=== PATIENT | male | born 1985 | race Caucasian/White ===

== ENCOUNTER 2022-12-06 15:28 | Inpatient (IN) ==
[2022-12-06 16:51] LABS: POC Calcium, Ionized 1.15 (1.16-1.32); POC Creatinine 0.9 (0.6-1.2); POC Potassium 3.7 (3.3-5.1)
--- NOTE | 2022-12-06 17:00 | Emergency Department Note ---
HPI General Chief complaint: Extremity Problem,Nontraumatic Stated complaint: leg infection Time Seen by Provider: 12/06/22 16:56 Source: patient Mode of arrival: ambulatory History of Present Illness HPI Narrative: Narrative: Patient is a 37-year-old male with no significant past medical history who presents to the emergency department due to worsening infection of the left groin and lower extremity. He states that he was seen on Tuesday at that time was diagnosed with epididymitis. He states that he received 1 dose of IV antibiotics in the emergency department and then has had 2 doses of Levaquin since then. He states that since then he has had spread of the redness down his leg, significant burning pain of this area, and has had chills. He states that he has felt unwell in general, but denies any other symptoms at this time. Related Data Previous Rx's Medication Instructions Recorded levofloxacin 750 mg tablet 750 mg PO Q24H Epididymitis 14 12/04/22 days #14 tabs Allergies Allergy/AdvReac Type Severity Reaction Status Date / Time Seasonal allergies Allergy Unknown Congestion Uncoded 10/19/22 09:43 Review of Systems ROS ROS Narrative: Narrative: Constitutional: Reports chills; Denies fever or weakness Eyes: Denies eye pain or vision change ENT ED: Denies throat pain or rhinorrhea Cardiovascular: Denies chest pain, dyspnea on exertion, orthopnea or edema Respiratory: Denies shortness of breath or cough Gastrointestinal: Reports nausea; Denies abdominal pain, vomiting, diarrhea, constipation, hematochezia or melena Genitourinary: Denies dysuria, frequency or hematuria Musculoskeletal: Denies back pain or myalgia Integumentary: Reports change in color (L thigh); Denies rash or lesions Neurological: Reports headache; Denies weakness, numbness, confusion, abnormal gait or dizziness [facility] Narrative Patient History Narrative: Narrative: Medical/Surgical/Family History All Active Problems (Updated 12/06/22 @ 18:56 by Martin Pathak MD) Left inguinal pain (Acute) Epididymitis (Acute) Sepsis (Acute) Cellulitis (Acute) Sleep pattern disturbance (Acute) Influenza vaccination declined (Acute) No pertinent past medical history (Chronic) Medical History No pertinent past medical history Surgical History History of surgery Tibia michel History of surgery PCL reconstruction Family History Grandfather Myocardial infarction, Onset Age: 45 Other No pertinent family history Social History Smoking Status: Never smoker Alcohol Intake Frequency: holiday/special occasion only Substance Use: does not use Exam Narrative Narrative: Narrative: General General appearance: Present alert and in no apparent distress; Absent anxious, appears intoxicated or sleepy Head Head: Present atraumatic and normocephalic Eye Eye: Present EOMI; Absent scleral icterus or nystagmus ENT ENT: Present mucous membranes moist; Absent nasal congestion Neck Neck: Present full ROM and trachea midline Chest Chest: Present normal inspection and symmetric chest wall rise Respiratory Respiratory: Present normal lung sounds bilaterally; Absent respiratory distress, rales/crackles, wheezes, stridor or accessory muscle use Cardiovascular Cardiovascular: Present regular rate, normal rhythm, tachycardia and normal hear t sounds Adbominal Abdominal: Present soft and normal bowel sounds; Absent distention or tenderness Extremities Extremities: Present normal inspection, full ROM and tenderness (Left thigh over erythema); Absent pedal edema or pretibial edema Back Back: Present normal inspection and full ROM Neurological Neurological: Present alert and oriented X3 Psychiatric Psychiatric: Present normal affect and normal mood Skin Skin: Present warm (WNL), dry and normal color Course Vital Signs Vital signs: Vital Signs Temperature 98.6 F 12/06/22 15:32 Pulse Rate 106 H 12/06/22 15:32 Respiratory Rate 18 12/06/22 15:32 Blood Pressure 147/82 12/06/22 15:32 Pulse Oximetry (%) 97 12/06/22 15:32 Oxygen Delivery Method Room Air 12/06/22 15:32 Temperature 100.8 F H 12/06/22 17:23 Pulse Rate 115 H 12/06/22 18:27 Respiratory Rate 18 12/06/22 15:32 Blood Pressure 145/82 12/06/22 18:27 Pulse Oximetry (%) 100 12/06/22 18:27 Oxygen Delivery Method Room Air 12/06/22 15:32 MDM MDM Narrative Medical decision making narrative: Narrative: Patient is a 37-year-old male who presents to the emergency department due to concern for worsening infection on his left thigh. Patient does have findings consistent with cellulitis and this has spread. Patient has been on Levaquin due to concern that his symptoms were due to epididymitis. I am not concerned for epididymitis at this point, but more concern for cellulitis. Patient does meet sepsis criteria after second measurement of temperature with a temperature of 100.8 F. At that time blood cultures were drawn, CG 4 was drawn, and fluids were started. Soon after that vancomycin and ceftriaxone were ordered. Patient's labs do demonstrate a leukocytosis of 24. Patient's lactate is 1.0. Procalcitonin is 0.96. I have spoken to Dr. Lopez who has agreed to see and evaluate patient for admission. Lab Data 12/06/22 17:00 Labs: Lab Results 12/06/22 12/06/22 12/06/22 Range/Units 16:40 16:41 17:00 WBC 24.0 H (4.5-11.0) K/mcL RBC 4.43 L (4.63-6.08) M/mcL Hgb 13.4 L (13.7-17.5) g/dL Hct 38.6 L (40.1-51.0) % POC Hct 42.0 (41-55) MCV 87.1 (80.0-100.0) fL MCH 30.2 (26.0-34.0) pg MCHC 34.7 (31.0-36.0) g/dL RDW 12.3 (11.5-14.5) % Plt Count 230 (140-440) K/mcL MPV 11.1 (8.8-12.5) fL Immature Gran % (Auto) 0.8 H (0.0-0.5) % Neut % (Auto) 91.4 H (38.0-78.0) % Lymph % (Auto) 4.5 L (15.5-49.0) % Esmeralda % (Auto) 2.0 (1.0-12.0) % Eos % (Auto) 1.1 (0.0-7.0) % Baso % (Auto) 0.2 (0.0-2.0) % Lymph # (Auto) 1.08 L (1.50-4.80) K/mcL [place]mer[place]da # (Auto) 0.49 (0.10-0.90) K/mcL Eos # (Auto) 0.26 (0.00-0.70) K/mcL Baso # (Auto) 0.05 (0.00-0.30) K/mcL Immature Gran # 0.18 H (0.00-0.05) K/mcl Absolute Neutrophils 21.93 H (1.80-8.00) K/mcL POC VBG pH 7.41 (7.32-7.42) POC VBG pCO2 at Temp 38.2 L (41-51) POC VBG pO2 19 L (25-40) POC VBG HCO3 24.2 (24-28) POC VBG Total CO2 25.0 (25-29) POC Venous O2 Sat 31.0 L (40-70) POC VBG Base Excess 0 (-2-2) VBG Lactic Acid 1.0 (0.5-2) POC Sodium 136 (133-145) POC Potassium 3.7 (3.3-5.1) POC Chloride 101 (96-108) POC Total CO2 25.0 (22-30) POC BUN 12 (6-20) POC Creatinine 0.9 (0.6-1.2) POC Glucose 108 H (70-105) POC WB Ioniz Calcium 1.15 L (1.16-1.32) Procalcitonin (<0.10) ng/mL 12/06/22 Range/Units 17:00 WBC (4.5-11.0) K/mcL RBC (4.63-6.08) M/mcL Hgb (13.7-17.5) g/dL Hct (40.1-51.0) % POC Hct (41-55) MCV (80.0-100.0) fL MCH (26.0-34.0) pg MCHC (31.0-36.0) g/dL RDW (11.5-14.5) % Plt Count (140-440) K/mcL MPV (8.8-12.5) fL Immature Gran % (Auto) (0.0-0.5) % Neut % (Auto) (38.0-78.0) % Lymph % (Auto) (15.5-49.0) % [place]mer[place]da % (Auto) (1.0-12.0) % Eos % (Auto) (0.0-7.0) % Baso % (Auto) (0.0-2.0) % Lymph # (Auto) (1.50-4.80) K/mcL [place]mer[place]da # (Auto) (0.10-0.90) K/mcL Eos # (Auto) (0.00-0.70) K/mcL Baso # (Auto) (0.00-0.30) K/mcL Immature Gran # (0.00-0.05) K/mcl Absolute Neutrophils (1.80-8.00) K/mcL POC VBG pH (7.32-7.42) POC VBG pCO2 at Temp (41-51) POC VBG pO2 (25-40) POC VBG HCO3 (24-28) POC VBG Total CO2 (25-29) POC Venous O2 Sat (40-70) POC VBG Base Excess (-2-2) VBG Lactic Acid (0.5-2) POC Sodium (133-145) POC Potassium (3.3-5.1) POC Chloride (96-108) POC Total CO2 (22-30) POC BUN (6-20) POC Creatinine (0.6-1.2) POC Glucose (70-105) POC WB Ioniz Calcium (1.16-1.32) Procalcitonin 0.96 H (<0.10) ng/mL Discharge Plan Patient/Caregiver Discharge Instructions Pt seen by [facility]/PA only: No Clinical Impression: Sepsis, Cellulitis Patient Disposition: Xfer As Inpt ([facility]) Follow up with: Byron Crouch DO [Primary Care Provider] - Prescriptions: No Action levofloxacin 750 mg tablet 750 mg PO Q24H 14 Days Qty: 14 0RF Rx Instructions: Take until completely gone.
[2022-12-06] MEDS ORDERED: 0.9 % SODIUM CHLORIDE 1,000 ML IV ONE ×2 (17:23→18:49)
[2022-12-06] MEDS ORDERED: PIPERACILLIN SODIUM/TAZOBACTAM 3.375 GM in DEXTROSE 5% IN WATER 50 ML IV ONE (17:57)
[2022-12-06] MEDS ORDERED: VANCOMYCIN 2,000 MG in 0.9 % SODIUM CHLORIDE 500 ML IV ONE (17:57)
[2022-12-06] MEDS ORDERED: ACETAMINOPHEN 500 MG TABLET PO ONE (18:16)
[2022-12-06] MEDS ORDERED: ACETAMINOPHEN 325 MG TABLET PO ONE (18:20)
[2022-12-06 18:25] LABS: Basophils # (Auto) 0.05 K/mcL (0.00-0.30); Basophils % (Auto) 0.2 % (0.0-2.0); Eosinophils # (Auto) 0.26 K/mcL (0.00-0.70); Eosinophils % (Auto) 1.1 % (0.0-7.0); Hematocrit 38.6 % (40.1-51.0); Hemoglobin 13.4 g/dL (13.7-17.5); Lymphocytes # (Auto) 1.08 K/mcL (1.50-4.80); Lymphocytes % (Auto) 4.5 % (15.5-49.0); Mean Cell Volume 87.1 fL (80.0-100.0); Mean Corpuscular HGB Conc 34.7 g/dL (31.0-36.0); Mean Platelet Volume 11.1 fL (8.8-12.5); Monocytes # (Auto) 0.49 K/mcL (0.10-0.90); Neutrophils % (Auto) 91.4 % (38.0-78.0); Platelet Count 230 K/mcL (140-440); RBC 4.43 M/mcL (4.63-6.08); Red Cell Distribution Width 12.3 % (11.5-14.5)
[2022-12-06] MEDS ORDERED: ONDANSETRON 4 MG/2 ML VIAL IV PRN (19:40)
[2022-12-06] MEDS ORDERED: HYDROcodone/APAP 5/325MG TABLET PO PRN (19:40)
[2022-12-06] MEDS ORDERED: VANCOMYCIN PER PHARMACY IV ONE (19:45)
--- NOTE | 2022-12-06 19:59 | Internal Med History&Physical ---
HPI History of Present Illness Patient information: Note initiated : 12/06/22 at 7:48 pm Service Date, if different from initiated Date: [] Patient: Mainor Owens a 37 y/o M admitted on for leg infection. Chief Complaint: [] Chief complaint: cellulitis History of present illness: Mr. Owens is a 37 year old M with no significant PMH. He reports he was taking his snowmachine off his truck and felt pain in his groin and later that evening had N/V/D. He was seen in the ER, felt to have epidydimitis and given Rx for levofloxacin and discharged. He returns with worsening redness and swelling of the left thigh. In the ER, WBC is 24, CT A/P notes left pelvic inflammatory changes "extending from the anterior border of the psoas muscle throught the inguinal canal in to the groin." He was started on vancomycin and Zosyn and admission was requested. Constitutional Constitutional: Present as per HPI Cardiovascular Cardiovascular: Present as per HPI Respiratory Respiratory: Present as per HPI Gastrointestinal Gastrointestinal: Present diarrhea, nausea and vomiting Musculoskeletal Additional comments: left leg/thigh pain Neurological Neurological: Present as per HPI PFSH PFSH All Active Problems (Updated 12/06/22 @ 18:56 by Martin Pathak MD) Left inguinal pain (Acute) Epididymitis (Acute) Sepsis (Acute) Cellulitis (Acute) Sleep pattern disturbance (Acute) Influenza vaccination declined (Acute) No pertinent past medical history (Chronic) Medical History No pertinent past medical history Surgical History History of surgery Tibia michel History of surgery PCL reconstruction Family History Grandfather Myocardial infarction, Onset Age: 45 Other No pertinent family history Social History marital status: single occupational status: employed occupation: [employer] smoking status: Never smoker alcohol intake frequency: holiday/special occasion only substance use type: does not use MEDS/ALLERGIES Home Medications and Allergies Home Medications Medication Instructions Recorded Confirmed Type levofloxacin 750 mg tablet 750 mg PO Q24H Epididymitis 14 12/04/22 Rx days #14 tabs Allergies Allergy/AdvReac Type Severity Reaction Status Date / Time Seasonal allergies Allergy Unknown Congestion Uncoded 10/19/22 09:43 EXAM Constitutional Vitals: Temp Pulse Resp BP Pulse Ox O2 Del Method 100.8 F H 111 H 18 130/67 97 Room Air 12/06/22 17:23 12/06/22 19:21 12/06/22 15:32 12/06/22 19:21 12/06/22 19:21 12/06/22 15:32 Head Head exam: Present atraumatic, normal inspection and normocephalic ENT ENT exam: Present mucous membranes moist Cardiovascular Cardiovascular exam: Present normal rate and rhythm GI/Abdominal GI/Abdominal exam: Present normal bowel sounds and soft; Absent distended Neurological Exam Neurological exam: Present CN II-XII intact and oriented X3 Skin Additional comments: erythema left thigh DATA Data Completed and Pending Labs: Labs from last 24 hours 12/06/22 12/06/22 12/06/22 17:00 17:00 16:41 WBC 24.0 H RBC 4.43 L Hgb 13.4 L Hct 38.6 L POC Hct 42.0 MCV 87.1 MCH 30.2 MCHC 34.7 RDW 12.3 Plt Count 230 MPV 11.1 Immature Gran % (Auto) 0.8 H Neut % (Auto) 91.4 H Lymph % (Auto) 4.5 L [place] % (Auto) 2.0 Eos % (Auto) 1.1 Baso % (Auto) 0.2 Lymph # (Auto) 1.08 L [place] # (Auto) 0.49 Eos # (Auto) 0.26 Baso # (Auto) 0.05 Immature Gran # 0.18 H Absolute Neutrophils 21.93 H POC VBG pH POC VBG pCO2 at Temp POC VBG pO2 POC VBG HCO3 POC VBG Total CO2 POC Venous O2 Sat POC VBG Base Excess VBG Lactic Acid POC Sodium 136 POC Potassium 3.7 POC Chloride 101 POC Total CO2 25.0 POC BUN 12 POC Creatinine 0.9 POC Glucose 108 H POC WB Ioniz Calcium 1.15 L Procalcitonin 0.96 H 12/06/22 16:40 WBC RBC Hgb Hct POC Hct MCV MCH MCHC RDW Plt Count MPV Immature Gran % (Auto) Neut % (Auto) Lymph % (Auto) [place] % (Auto) Eos % (Auto) Baso % (Auto) Lymph # (Auto) [place] # (Auto) Eos # (Auto) Baso # (Auto) Immature Gran # Absolute Neutrophils POC VBG pH 7.41 POC VBG pCO2 at Temp 38.2 L POC VBG pO2 19 L POC VBG HCO3 24.2 POC VBG Total CO2 25.0 POC Venous O2 Sat 31.0 L POC VBG Base Excess 0 VBG Lactic Acid 1.0 POC Sodium POC Potassium POC Chloride POC Total CO2 POC BUN POC Creatinine POC Glucose POC WB Ioniz Calcium Procalcitonin A/P Assessment and plan (1) Cellulitis: Assessment and plan: - left inguinal and leg cellulitis - vancomycin and Zosyn - Blood culture pending Status: Acute Plan FEN - F: NS 100 ml/hr - E: replace as - N: regular DVT Prophylaxis - enoxaparin 40 mg subcutaneous daily Code Status - full code Discharge Disposition - anticipated he will discharge to home Time Spent With Patient Time: Total time spent is greater than 50% in coordination of care (as documented) at patient's floor/unit and/or counseling patient:
[2022-12-06] MEDS: 0.9 % SODIUM CHLORIDE 1,000 ML IV SCH (22:06)
[2022-12-06] MEDS: 0.9 % SODIUM CHLORIDE 10 ML SYRINGE IV SCH (22:06)
[2022-12-07] MEDS: ACETAMINOPHEN 325 MG TABLET PO PRN ×4 (00:49→20:38)
[2022-12-07] MEDS: PIPERACILLIN SODIUM/TAZOBACTAM 3.375 GM in DEXTROSE 5% IN WATER 50 ML IV SCH ×4 (00:52→17:47)
[2022-12-07] MEDS: 0.9 % SODIUM CHLORIDE 10 ML SYRINGE IV SCH ×4 (05:42→21:05)
[2022-12-07] MEDS ORDERED: VANCOMYCIN PER PHARMACY IV SCH (06:45)
[2022-12-07 07:15] LABS: Basophils # (Auto) 0.04 K/mcL (0.00-0.30); Basophils % (Auto) 0.2 % (0.0-2.0); Eosinophils # (Auto) 0.21 K/mcL (0.00-0.70); Eosinophils % (Auto) 1.1 % (0.0-7.0); Hematocrit 33.9 % (40.1-51.0); Hemoglobin 11.6 g/dL (13.7-17.5); Lymphocytes # (Auto) 1.49 K/mcL (1.50-4.80); Lymphocytes % (Auto) 7.9 % (15.5-49.0); Mean Cell Volume 87.1 fL (80.0-100.0); Mean Corpuscular HGB Conc 34.2 g/dL (31.0-36.0); Mean Platelet Volume 10.5 fL (8.8-12.5); Monocytes # (Auto) 0.79 K/mcL (0.10-0.90); Monocytes % (Auto) 4.2 % (1.0-12.0); Platelet Count 210 K/mcL (140-440); RBC 3.89 M/mcL (4.63-6.08); Red Cell Distribution Width 12.4 % (11.5-14.5); WBC 18.9 K/mcL (4.5-11.0)
[2022-12-07] MEDS: 0.9 % SODIUM CHLORIDE 1,000 ML IV SCH (08:55)
[2022-12-07] MEDS: ENOXAPARIN 40 MG/0.4 ML SYRINGE SQ SCH (08:55)
[2022-12-07] MEDS: VANCOMYCIN 1,500 MG in 0.9 % SODIUM CHLORIDE 500 ML IV SCH ×2 (08:55→20:39)
--- NOTE | 2022-12-07 10:55 | Internal Med Progress Note ---
SUBJECTIVE Subjective Patient information: Note initiated : 12/07/22 at 10:50 am Service Date, if different from initiated Date: [] Patient: Mainor Owens a 37 y/o M admitted on 12/06/22 for leg infection. Mr. Owens is a 37 year old M with no significant PMH. He reports he was taking his snowmachine off his truck and felt pain in his groin and later that evening had N/V/D. He was seen in the ER, felt to have epidydimitis and given Rx for levofloxacin and discharged. He returns with worsening redness and swelling of the left thigh. In the ER, WBC is 24, CT A/P notes left pelvic inflammatory changes "extending from the anterior border of the psoas muscle throught the inguinal canal in to the groin." He was started on vancomycin and Zosyn and admission was requested. Dec 07, WBC improved to 18 from 24. Blood cultures are NGTD. Will continue vancomycin and Zosy. Leg is less vibrantly red. Constitutional Vitals: Vital Signs Temp Pulse Resp BP Pulse Ox O2 Del Method 100.0 F H 101 H 18 129/89 96 Room Air 12/07/22 08:00 12/07/22 08:00 12/07/22 08:00 12/07/22 08:00 12/07/22 08:00 12/07/22 08:00 Period Temp Pulse Resp BP Sys/Sequeira Pulse Ox O2 Del Method O2 Flow Rate Last 24 Hr 98.4 F-100.8 F 89-122 16-18 120-147/63-93 96-100 Room Air-Room Air Intake and Output 12/06/22 12/07/22 12/07/22 19:59 03:59 11:59 Intake Total 1050 1550 1800 Output Total 1075 1200 Balance 1050 475 600 Weight 90.718 kg 102.257 kg Intake & Output: Intake & Output 12/06/22 12/07/22 12/07/22 19:59 03:59 11:59 Intake Total 1050 1550 1800 Output Total 1075 1200 Balance 1050 475 600 Weight 90.718 kg 102.257 kg Intake: IV 1050 1550 1050 Sodium Chloride 0.9% 1,000 ml @ 1000 1000 1000 100 mls/hr IV .Q10H [facility] Rx#: [id number] Zosyn 3.375 gm In Dextrose 5% 50 50 50 in Water 50 ml @ 100 mls/hr IV Q6H [facility] Rx#:[id number] Vancomycin 2,000 mg In Sodium 500 Chloride 0.9% 500 ml @ 250 mls/ hr IV ONCE ONE Rx#:[id number] GI Tube Flush 750 Output: Void Amount 1075 1200 Other: Meal Breakfast Percent of Meal Consumed 75% Feeding Ability Independent Urine Appearance Clear Clear Urine Color Yellow Yellow Urine Odor Normal Normal General appearance: no acute distress Head Head exam: Present atraumatic, normal inspection and normocephalic ENT ENT exam: Present mucous membranes moist Respiratory Respiratory exam: Present normal respiratory exam and CTAB Cardiovascular Cardiovascular exam: Present normal rate and rhythm GI/Abdominal GI/Abdominal exam: Present normal bowel sounds and soft; Absent distended Skin Additional comments: left thigh redness less intense and slightly smaller area. OBJ DATA Labs 12/07/22 05:21 Labs: Abnormal Lab Results 12/07/22 12/06/22 12/06/22 05:21 17:00 17:00 WBC 18.9 H 24.0 H RBC 3.89 L 4.43 L Hgb 11.6 L 13.4 L Hct 33.9 L 38.6 L Immature Gran % (Auto) 0.6 H 0.8 H Neut % (Auto) 86.0 H 91.4 H Lymph % (Auto) 7.9 L 4.5 L Lymph # (Auto) 1.49 L 1.08 L Immature Gran # 0.11 H 0.18 H Absolute Neutrophils 16.28 H 21.93 H POC VBG pCO2 at Temp POC VBG pO2 POC Venous O2 Sat POC Glucose POC WB Ioniz Calcium Procalcitonin 0.96 H 12/06/22 12/06/22 16:41 16:40 WBC RBC Hgb Hct Immature Gran % (Auto) Neut % (Auto) Lymph % (Auto) Lymph # (Auto) Immature Gran # Absolute Neutrophils POC VBG pCO2 at Temp 38.2 L POC VBG pO2 19 L POC Venous O2 Sat 31.0 L POC Glucose 108 H POC WB Ioniz Calcium 1.15 L Procalcitonin Meds: Medications Acetaminophen (Acetaminophen 325 Mg Tablet) 650 mg PO Q6HP PRN; Protocol PRN Reason: Per Pain Protocol/Fever > 101 Last Admin: 12/07/22 07:05 Dose: 650 mg Hydrocodone Bitart/Acetaminophen (Hydrocodone/Apap 5/325mg Tablet) 1 tab PO Q4HP PRN; Protocol PRN Reason: Per Pain Protocol Enoxaparin Sodium (Enoxaparin 40 Mg/0.4 Ml Syringe) 40 mg SQ DAILY [facility] Last Admin: 12/07/22 08:55 Dose: 40 mg Piperacillin Sod/Tazobactam (Sod 3.375 gm/ Dextrose) 50 mls @ 100 mls/hr IV Q6H [facility]; Protocol Last Infusion: 12/07/22 06:34 Dose: Infused Vancomycin HCl 1,500 mg/ (Sodium Chloride) 500 mls @ 333.3 mls/hr IV Q12H [facility] Last Admin: 12/07/22 08:55 Dose: 333.3 mls/hr Ondansetron HCl (Ondansetron 4 Mg/2 Ml Vial) 4 mg IV Q6HP PRN PRN Reason: Nausea And Vomiting Sodium Chloride (0.9 % Sodium Chloride 10 Ml Syringe) 10 ml IV Q8 [facility] Last Admin: 12/07/22 05:42 Dose: Not Given Vancomycin HCl (Vancomycin Per Pharmacy) 1 order IV UD [facility]; Protocol A/P Assessment and plan (1) Cellulitis: Assessment and plan: - left inguinal and leg cellulitis - continue vancomycin and Zosyn - Blood cultures NGTD Status: Acute Plan FEN - F: stop IVF - E: replace as needed - N: regular DVT Prophylaxis - enoxaparin 40 mg subcutaneous daily Code Status - full code Discharge Disposition - anticipated he will discharge to home Sepsis Sepsis Identified: No Time Spent With Patient Time: Total time spent is greater than 50% in coordination of care (as documented) at patient's floor/unit and/or counseling patient: Subsequent: Total time with patient: 25 - 34 minutes QUALITY VTE Deep Vein Thrombosis/Pulmonary Embolism Present on Admission: No
[2022-12-08] MEDS: PIPERACILLIN SODIUM/TAZOBACTAM 3.375 GM in DEXTROSE 5% IN WATER 50 ML IV SCH ×4 (00:02→17:42)
[2022-12-08] MEDS: ACETAMINOPHEN 325 MG TABLET PO PRN ×3 (03:14→20:18)
[2022-12-08] MEDS: 0.9 % SODIUM CHLORIDE 10 ML SYRINGE IV SCH ×3 (05:58→22:28)
[2022-12-08 07:52] LABS: Basophils # (Auto) 0.05 K/mcL (0.00-0.30); Basophils % (Auto) 0.3 % (0.0-2.0); Eosinophils # (Auto) 0.42 K/mcL (0.00-0.70); Eosinophils % (Auto) 2.6 % (0.0-7.0); Hematocrit 35.5 % (40.1-51.0); Hemoglobin 12.1 g/dL (13.7-17.5); Lymphocytes # (Auto) 2.04 K/mcL (1.50-4.80); Lymphocytes % (Auto) 12.7 % (15.5-49.0); Mean Cell Volume 88.1 fL (80.0-100.0); Mean Corpuscular HGB Conc 34.1 g/dL (31.0-36.0); Mean Platelet Volume 10.5 fL (8.8-12.5); Monocytes # (Auto) 1.09 K/mcL (0.10-0.90); Monocytes % (Auto) 6.8 % (1.0-12.0); Neutrophils % (Auto) 75.8 % (38.0-78.0); Platelet Count 238 K/mcL (140-440); RBC 4.03 M/mcL (4.63-6.08); Red Cell Distribution Width 12.6 % (11.5-14.5)
[2022-12-08] MEDS: ENOXAPARIN 40 MG/0.4 ML SYRINGE SQ SCH (09:26)
[2022-12-08] MEDS: VANCOMYCIN 1,500 MG in 0.9 % SODIUM CHLORIDE 500 ML IV SCH ×4 (09:48→22:35)
--- NOTE | 2022-12-08 12:06 | Internal Med Progress Note ---
SUBJECTIVE Subjective Patient information: Note initiated : 12/08/22 at 12:05 pm Service Date, if different from initiated Date: [] Patient: Mainor Owens a 37 y/o M admitted on 12/06/22 for leg infection. Chief Complaint: [] Interval history: Mr. Owens is a 37 year old M with no significant PMH. He reports he was taking his snowmachine off his truck and felt pain in his groin and later that evening had N/V/D. He was seen in the ER, felt to have epidydimitis and given Rx for levofloxacin and discharged. He returns with worsening redness and swelling of the left thigh. In the ER, WBC is 24, CT A/P notes left pelvic inflammatory changes "extending from the anterior border of the psoas muscle throught the inguinal canal in to the groin." He was started on vancomycin and Zosyn and admission was requested. Dec 07, WBC improved to 18 from 24. Blood cultures are NGTD. Will continue vancomycin and Zosy. Leg is less vibrantly red. Dec 08, WBC improved to 16. Cultures are still NGTD. Leg is less inflamed and Pt reports less pain. Continue current plan of care. Constitutional Vitals: Vital Signs Temp Pulse Resp BP Pulse Ox O2 Del Method 98.4 F 72 16 136/91 91 Room Air 12/08/22 08:00 12/08/22 08:00 12/08/22 03:04 12/08/22 08:00 12/08/22 08:00 12/08/22 08:00 Period Temp Pulse Resp BP Sys/Sequeira Pulse Ox O2 Del Method O2 Flow Rate Last 24 Hr 98.4 F-99.7 F 72-86 16-18 123-136/73-91 91-100 Room Air-Room Air Intake and Output 12/08/22 12/08/22 12/08/22 03:59 11:59 19:59 Intake Total 1861 550 Output Total 4000 450 Balance -2139 100 Weight 102.569 kg Intake & Output: Intake & Output 12/08/22 12/08/22 12/08/22 03:59 11:59 19:59 Intake Total 1861 550 Output Total 4000 450 Balance -2139 100 Weight 102.569 kg Intake: IV 550 550 Zosyn 3.375 gm In Dextrose 5% 50 50 in Water 50 ml @ 100 mls/hr IV Q6H [facility] Rx#:[id number] Vancomycin 1,500 mg In Sodium 500 500 Chloride 0.9% 500 ml @ 333.3 mls/hr IV Q8H [facility] Rx#:[id number] Oral 1311 Output: Void Amount 4000 450 Other: Urine Appearance Clear Clear Urine Color Yellow Yellow General appearance: no acute distress Head Head exam: Present atraumatic and normal inspection ENT ENT exam: Present mucous membranes moist Respiratory Respiratory exam: Present normal respiratory exam and CTAB Cardiovascular Cardiovascular exam: Present normal rate and rhythm GI/Abdominal GI/Abdominal exam: Present normal bowel sounds Neurological Exam Neurological exam: Present CN II-XII intact and oriented X3 OBJ DATA Labs 12/08/22 05:26 Labs: Abnormal Lab Results 12/08/22 12/08/22 12/07/22 08:11 05:26 05:21 WBC 16.0 H 18.9 H RBC 4.03 L 3.89 L Hgb 12.1 L 11.6 L Hct 35.5 L 33.9 L Immature Gran % (Auto) 1.8 H 0.6 H Neut % (Auto) 86.0 H Lymph % (Auto) 12.7 L 7.9 L Lymph # (Auto) 1.49 L [place] # (Auto) 1.09 H Immature Gran # 0.29 H 0.11 H Absolute Neutrophils 12.14 H 16.28 H POC VBG pCO2 at Temp POC VBG pO2 POC Venous O2 Sat POC Glucose POC WB Ioniz Calcium Procalcitonin Vancomycin Trough < 4.0 L 12/06/22 12/06/22 12/06/22 17:00 17:00 16:41 WBC 24.0 H RBC 4.43 L Hgb 13.4 L Hct 38.6 L Immature Gran % (Auto) 0.8 H Neut % (Auto) 91.4 H Lymph % (Auto) 4.5 L Lymph # (Auto) 1.08 L [place] # (Auto) Immature Gran # 0.18 H Absolute Neutrophils 21.93 H POC VBG pCO2 at Temp POC VBG pO2 POC Venous O2 Sat POC Glucose 108 H POC WB Ioniz Calcium 1.15 L Procalcitonin 0.96 H Vancomycin Trough 12/06/22 16:40 WBC RBC Hgb Hct Immature Gran % (Auto) Neut % (Auto) Lymph % (Auto) Lymph # (Auto) [place] # (Auto) Immature Gran # Absolute Neutrophils POC VBG pCO2 at Temp 38.2 L POC VBG pO2 19 L POC Venous O2 Sat 31.0 L POC Glucose POC WB Ioniz Calcium Procalcitonin Vancomycin Trough Meds: Medications Acetaminophen (Acetaminophen 325 Mg Tablet) 650 mg PO Q6HP PRN; Protocol PRN Reason: Per Pain Protocol/Fever > 101 Last Admin: 12/08/22 11:35 Dose: 650 mg Hydrocodone Bitart/Acetaminophen (Hydrocodone/Apap 5/325mg Tablet) 1 tab PO Q4HP PRN; Protocol PRN Reason: Per Pain Protocol Enoxaparin Sodium (Enoxaparin 40 Mg/0.4 Ml Syringe) 40 mg SQ DAILY [facility] Last Admin: 12/08/22 09:26 Dose: 40 mg Piperacillin Sod/Tazobactam (Sod 3.375 gm/ Dextrose) 50 mls @ 100 mls/hr IV Q6H [facility]; Protocol Last Admin: 12/08/22 11:36 Dose: 100 mls/hr Vancomycin HCl 1,500 mg/ (Sodium Chloride) 500 mls @ 333.3 mls/hr IV Q8H [facility] Last Infusion: 12/08/22 11:30 Dose: Infused Ondansetron HCl (Ondansetron 4 Mg/2 Ml Vial) 4 mg IV Q6HP PRN PRN Reason: Nausea And Vomiting Sodium Chloride (0.9 % Sodium Chloride 10 Ml Syringe) 10 ml IV Q8 [facility] Last Admin: 12/08/22 05:58 Dose: 10 ml Vancomycin HCl (Vancomycin Per Pharmacy) 1 order IV [facility]; Protocol A/P Assessment and plan (1) Cellulitis: Assessment and plan: - left inguinal and leg cellulitis - continue vancomycin and Zosyn - Blood cultures NGTD Status: Acute Plan FEN - F: stop IVF - E: replace as needed - N: regular DVT Prophylaxis - enoxaparin 40 mg subcutaneous daily Code Status - full code Discharge Disposition - anticipated he will discharge to home Time Spent With Patient Time: Total time spent is greater than 50% in coordination of care (as documented) at patient's floor/unit and/or counseling patient: QUALITY VTE Deep Vein Thrombosis/Pulmonary Embolism Present on Admission: No
--- NOTE | 2022-12-08 14:59 | Internal Med Progress Note ---
SUBJECTIVE Subjective Patient information: Note initiated : 12/08/22 at 2:55 pm Service Date, if different from initiated Date: [] Patient: Mainor Owens a 37 y/o M admitted on 12/06/22 for leg infection. Chief Complaint: [] Interval history: Mr. Owens is a 37 year old M with no significant PMH. He reports he was taking his snowmachine off his truck and felt pain in his groin and later that evening had N/V/D. He was seen in the ER, felt to have epidydimitis and given Rx for levofloxacin and discharged. He returns with worsening redness and swelling of the left thigh. In the ER, WBC is 24, CT A/P notes left pelvic inflammatory changes "extending from the anterior border of the psoas muscle throught the inguinal canal in to the groin." He was started on vancomycin and Zosyn and admission was requested. Dec 07, WBC improved to 18 from 24. Blood cultures are NGTD. Will continue vancomycin and Zosy. Leg is less vibrantly red. Dec 08, WBC improved to 16. Cultures are still NGTD. Leg is less inflamed and Pt reports less pain. Continue current plan of care. 3 Patient feeling like his redness is improving. Patient is now afebrile. Leukocytosis present. Patient states he was on Levaquin for 3 days prior but his symptoms had worsened and that brought him in the ED. Follow-up PCT. mrsa screen. Complains of headaches. Review of Systems: denies fever/chills/nausea/vomiting/chest or abdominal pain/cough/dyspnea/diarrhea. Otherwise see above. PHYSICAL EXAM: General: Alert, Awake, No acute Distress, obese Eyes/N/T: EOMI, no scleral icterus Head/Neck: neck supple, full ROM, CV: RRR, No murmurs, Pulm: Clear b/l, no wheezing/rhonchi/rales, no respiratory distress Abd: soft, nontender, +BS x4 Ext: no clubbing/cyanosis/edema, left inner thigh and groin with erythema - improving Neuro: Alert, no focal deficits, moves all extremities, sensations intact b/l upper/lower Psychiatric: Skin: warm/dry, normal color Constitutional Vitals: Vital Signs Temp Pulse Resp BP Pulse Ox O2 Del Method 98.4 F 69 16 144/95 99 Room Air 12/08/22 12:00 12/08/22 12:00 12/08/22 12:00 12/08/22 12:00 12/08/22 12:00 12/08/22 12:00 Period Temp Pulse Resp BP Sys/Sequeira Pulse Ox O2 Del Method O2 Flow Rate Last 24 Hr 98.4 F-99.7 F 69-86 16-18 123-144/73-95 91-100 Room Air-Room Air Intake and Output 12/08/22 12/08/22 12/08/22 03:59 11:59 19:59 Intake Total 1304 483 2315 Output Total 4000 450 400 Balance -2139 100 690 Weight 102.569 kg Intake & Output: Intake & Output 12/08/22 12/08/22 12/08/22 03:59 11:59 19:59 Intake Total 6141 263 8865 Output Total 4000 450 400 Balance -2139 100 690 Weight 102.569 kg Intake: IV 550 550 50 Zosyn 3.375 gm In Dextrose 5% 50 50 50 in Water 50 ml @ 100 mls/hr IV Q6H [facility] Rx#:[id number] Vancomycin 1,500 mg In Sodium 500 500 Chloride 0.9% 500 ml @ 333.3 mls/hr IV Q8H [facility] Rx#:[id number] Oral 1311 1040 Output: Void Amount 4000 450 400 Other: Meal Breakfast Percent of Meal Consumed 50% Urine Appearance Clear Clear Urine Color Yellow Yellow OBJ DATA Labs 12/08/22 05:26 Labs: Abnormal Lab Results 12/08/22 12/08/22 12/07/22 08:11 05:26 05:21 WBC 16.0 H 18.9 H RBC 4.03 L 3.89 L Hgb 12.1 L 11.6 L Hct 35.5 L 33.9 L Immature Gran % (Auto) 1.8 H 0.6 H Neut % (Auto) 86.0 H Lymph % (Auto) 12.7 L 7.9 L Lymph # (Auto) 1.49 L [place] # (Auto) 1.09 H Immature Gran # 0.29 H 0.11 H Absolute Neutrophils 12.14 H 16.28 H POC VBG pCO2 at Temp POC VBG pO2 POC Venous O2 Sat POC Glucose POC WB Ioniz Calcium Procalcitonin Vancomycin Trough < 4.0 L 12/06/22 12/06/22 12/06/22 17:00 17:00 16:41 WBC 24.0 H RBC 4.43 L Hgb 13.4 L Hct 38.6 L Immature Gran % (Auto) 0.8 H Neut % (Auto) 91.4 H Lymph % (Auto) 4.5 L Lymph # (Auto) 1.08 L [place] # (Auto) Immature Gran # 0.18 H Absolute Neutrophils 21.93 H POC VBG pCO2 at Temp POC VBG pO2 POC Venous O2 Sat POC Glucose 108 H POC WB Ioniz Calcium 1.15 L Procalcitonin 0.96 H Vancomycin Trough 12/06/22 16:40 WBC RBC Hgb Hct Immature Gran % (Auto) Neut % (Auto) Lymph % (Auto) Lymph # (Auto) [place] # (Auto) Immature Gran # Absolute Neutrophils POC VBG pCO2 at Temp 38.2 L POC VBG pO2 19 L POC Venous O2 Sat 31.0 L POC Glucose POC WB Ioniz Calcium Procalcitonin Vancomycin Trough Meds: Medications Acetaminophen (Acetaminophen 325 Mg Tablet) 650 mg PO Q6HP PRN; Protocol PRN Reason: Per Pain Protocol/Fever > 101 Last Admin: 12/08/22 11:35 Dose: 650 mg Hydrocodone Bitart/Acetaminophen (Hydrocodone/Apap 5/325mg Tablet) 1 tab PO Q4HP PRN; Protocol PRN Reason: Per Pain Protocol Enoxaparin Sodium (Enoxaparin 40 Mg/0.4 Ml Syringe) 40 mg SQ DAILY [facility] Last Admin: 12/08/22 09:26 Dose: 40 mg Piperacillin Sod/Tazobactam (Sod 3.375 gm/ Dextrose) 50 mls @ 100 mls/hr IV Q6H [facility]; Protocol Last Infusion: 12/08/22 12:15 Dose: Infused Vancomycin HCl 1,500 mg/ (Sodium Chloride) 500 mls @ 333.3 mls/hr IV Q8H [facility] Last Infusion: 12/08/22 11:30 Dose: Infused Ondansetron HCl (Ondansetron 4 Mg/2 Ml Vial) 4 mg IV Q6HP PRN PRN Reason: Nausea And Vomiting Sodium Chloride (0.9 % Sodium Chloride 10 Ml Syringe) 10 ml IV Q8 [facility] Last Admin: 12/08/22 05:58 Dose: 10 ml Vancomycin HCl (Vancomycin Per Pharmacy) 1 order IV UD [facility]; Protocol A/P Narrative A/P Narrative: A: *Cellulitis of left inguinal region and inner thigh: -CT no abscess but cellulitis left pelvic/groin/inguinal canal -BC neg thus far *Sepsis: 2/2 above - leukocytosis present, fever improved * P: -IV abx -stop ivf -Monitor and replace electrolytes as needed -mrsa screen -ppx: Lovenox Time Spent With Patient Time: Total time spent is greater than 50% in coordination of care (as documented) at patient's floor/unit and/or counseling patient: Subsequent: Total time with patient: 35 - 49 minutes QUALITY VTE Deep Vein Thrombosis/Pulmonary Embolism Present on Admission: No
[2022-12-09] MEDS: PIPERACILLIN SODIUM/TAZOBACTAM 3.375 GM in DEXTROSE 5% IN WATER 50 ML IV SCH ×5 (00:17→23:22)
[2022-12-09] MEDS: 0.9 % SODIUM CHLORIDE 10 ML SYRINGE IV SCH ×3 (05:51→21:34)
[2022-12-09] MEDS: ACETAMINOPHEN 325 MG TABLET PO PRN ×4 (05:55→23:54)
[2022-12-09] MEDS: VANCOMYCIN 1,500 MG in 0.9 % SODIUM CHLORIDE 500 ML IV SCH ×3 (06:46→21:33)
[2022-12-09 06:55] LABS: Basophils # (Auto) 0.04 K/mcL (0.00-0.30); Basophils % (Auto) 0.3 % (0.0-2.0); Eosinophils # (Auto) 0.57 K/mcL (0.00-0.70); Eosinophils % (Auto) 4.5 % (0.0-7.0); Hematocrit 36.8 % (40.1-51.0); Hemoglobin 12.5 g/dL (13.7-17.5); Lymphocytes # (Auto) 2.25 K/mcL (1.50-4.80); Mean Cell Volume 87.4 fL (80.0-100.0); Mean Platelet Volume 9.9 fL (8.8-12.5); Monocytes # (Auto) 1.13 K/mcL (0.10-0.90); Neutrophils % (Auto) 63.8 % (38.0-78.0); Platelet Count 256 K/mcL (140-440); RBC 4.21 M/mcL (4.63-6.08); Red Cell Distribution Width 12.5 % (11.5-14.5); WBC 12.5 K/mcL (4.5-11.0)
[2022-12-09 07:25] LABS: ALT/SGPT 35 U/L (<40); AST/SGOT 25 U/L (<40); Albumin 3.2 gm/dL (3.2-5.2); Alkaline Phosphatase 114 U/L (39-117); Bilirubin,Direct < 0.2 mg/dL (0-0.3); Bilirubin,Total 0.4 mg/dL (0.1-1.0); Blood Urea Nitrogen 7 mg/dL (6-20); Calcium 8.8 mg/dL (8.6-10.4); Carbon Dioxide 27 mmol/L (22-30); Chloride 102 mmol/L (96-108); Globulin 3.1 gm/dL (2.2-3.7); Glomerular Filtration Rate 113; Glucose 91 mg/dL (70-105); Lactate Dehydrogenase 197 U/L (135-225); Phosphorous 4.1 mg/dL (2.5-4.5); Triglycerides 161 mg/dL (<150); Uric Acid 2.2 mg/dL (2.5-8.0)
--- NOTE | 2022-12-09 08:44 | Internal Med Progress Note ---
SUBJECTIVE Subjective Patient information: Note initiated : 12/09/22 at 8:43 am Service Date, if different from initiated Date: [] Patient: Mainor Owens a 37 y/o M admitted on 12/06/22 for leg infection. Chief Complaint: [] Interval history: Mr. Owens is a 37 year old M with no significant PMH. He reports he was taking his snowmachine off his truck and felt pain in his groin and later that evening had N/V/D. He was seen in the ER, felt to have epidydimitis and given Rx for levofloxacin and discharged. He returns with worsening redness and swelling of the left thigh. In the ER, WBC is 24, CT A/P notes left pelvic inflammatory changes "extending from the anterior border of the psoas muscle throught the inguinal canal in to the groin." He was started on vancomycin and Zosyn and admission was requested. Dec 07, WBC improved to 18 from 24. Blood cultures are NGTD. Will continue vancomycin and Zosy. Leg is less vibrantly red. Dec 08, WBC improved to 16. Cultures are still NGTD. Leg is less inflamed and Pt reports less pain. Continue current plan of care. 3/2 Patient with erythema and induration to left groin and inner thigh. Patient feels swelling and discomfort is improving. Leukocytosis present but improving. Patient does complain of headache but otherwise no new complaints. Review of Systems: denies fever/chills/nausea/vomiting/chest or abdominal pain/cough/dyspnea/diarrhea. Otherwise see above. PHYSICAL EXAM: General: Alert, Awake, No acute Distress, obese Eyes/N/T: EOMI, no scleral icterus Head/Neck: neck supple, full ROM, CV: RRR, No murmurs, Pulm: Clear b/l, no wheezing/rhonchi/rales, no respiratory distress Abd: soft, nontender, +BS x4 Ext: no clubbing/cyanosis/edema, left inner thigh/groin erythema improving Neuro: Alert, no focal deficits, moves all extremities, sensations intact b/l upper/lower Psychiatric: Skin: warm/dry, normal color Constitutional Vitals: Vital Signs Temp Pulse Resp BP Pulse Ox O2 Del Method 98.9 F 78 12 136/76 99 Room Air 12/09/22 04:35 12/09/22 04:35 12/09/22 04:35 12/09/22 04:35 12/09/22 04:35 12/09/22 04:35 Period Temp Pulse Resp BP Sys/Sequeira Pulse Ox O2 Del Method O2 Flow Rate Last 24 Hr 98.4 F-99.3 F 69-78 12-16 136-144/76-95 97-100 Room Air-Room Air Intake and Output 12/08/22 12/09/22 12/09/22 19:59 03:59 11:59 Intake Total 2120 550 750 Output Total 2400 1700 2200 Balance -280 -1150 -1450 Weight 103.107 kg Intake & Output: Intake & Output 12/08/22 12/09/22 12/09/22 19:59 03:59 11:59 Intake Total 2120 550 750 Output Total 2400 1700 2200 Balance -280 -1150 -1450 Weight 103.107 kg Intake: IV 600 550 Zosyn 3.375 gm In Dextrose 5% 100 50 in Water 50 ml @ 100 mls/hr IV Q6H [facility] Rx#:[id number] Vancomycin 1,500 mg In Sodium 500 500 Chloride 0.9% 500 ml @ 333.3 mls/hr IV Q8H [facility] Rx#:[id number] Oral 1520 750 Output: Void Amount 2400 1700 2200 Other: Meal Lunch Percent of Meal Consumed 75% Urine Appearance Clear Clear Urine Color Yellow Yellow OBJ DATA Labs 12/09/22 05:10 12/09/22 05:09 Labs: Abnormal Lab Results 12/09/22 12/09/22 12/08/22 05:10 05:09 08:11 WBC 12.5 H RBC 4.21 L Hgb 12.5 L Hct 36.8 L Immature Gran % (Auto) 4.5 H Neut % (Auto) Lymph % (Auto) Lymph # (Auto) [place] # (Auto) 1.13 H Immature Gran # 0.57 H Absolute Neutrophils POC VBG pCO2 at Temp POC VBG pO2 POC Venous O2 Sat POC Glucose Uric Acid 2.2 L POC WB Ioniz Calcium Triglycerides 161 H Procalcitonin Vancomycin Trough < 4.0 L 12/08/22 12/07/22 12/06/22 05:26 05:21 17:00 WBC 16.0 H 18.9 H RBC 4.03 L 3.89 L Hgb 12.1 L 11.6 L Hct 35.5 L 33.9 L Immature Gran % (Auto) 1.8 H 0.6 H Neut % (Auto) 86.0 H Lymph % (Auto) 12.7 L 7.9 L Lymph # (Auto) 1.49 L [place] # (Auto) 1.09 H Immature Gran # 0.29 H 0.11 H Absolute Neutrophils 12.14 H 16.28 H POC VBG pCO2 at Temp POC VBG pO2 POC Venous O2 Sat POC Glucose Uric Acid POC WB Ioniz Calcium Triglycerides Procalcitonin 0.96 H Vancomycin Trough 12/06/22 12/06/22 12/06/22 17:00 16:41 16:40 WBC 24.0 H RBC 4.43 L Hgb 13.4 L Hct 38.6 L Immature Gran % (Auto) 0.8 H Neut % (Auto) 91.4 H Lymph % (Auto) 4.5 L Lymph # (Auto) 1.08 L [place] # (Auto) Immature Gran # 0.18 H Absolute Neutrophils 21.93 H POC VBG pCO2 at Temp 38.2 L POC VBG pO2 19 L POC Venous O2 Sat 31.0 L POC Glucose 108 H Uric Acid POC WB Ioniz Calcium 1.15 L Triglycerides Procalcitonin Vancomycin Trough Meds: Medications Acetaminophen (Acetaminophen 325 Mg Tablet) 650 mg PO Q6HP PRN; Protocol PRN Reason: Per Pain Protocol/Fever > 101 Last Admin: 12/09/22 05:55 Dose: 650 mg Hydrocodone Bitart/Acetaminophen (Hydrocodone/Apap 5/325mg Tablet) 1 tab PO Q4HP PRN; Protocol PRN Reason: Per Pain Protocol Enoxaparin Sodium (Enoxaparin 40 Mg/0.4 Ml Syringe) 40 mg SQ DAILY [facility] Last Admin: 12/08/22 09:26 Dose: 40 mg Piperacillin Sod/Tazobactam (Sod 3.375 gm/ Dextrose) 50 mls @ 100 mls/hr IV Q6H [facility]; Protocol Last Admin: 12/09/22 05:55 Dose: 100 mls/hr Vancomycin HCl 1,500 mg/ (Sodium Chloride) 500 mls @ 333.3 mls/hr IV Q8H [facility] Last Admin: 12/09/22 06:46 Dose: 333.3 mls/hr Ondansetron HCl (Ondansetron 4 Mg/2 Ml Vial) 4 mg IV Q6HP PRN PRN Reason: Nausea And Vomiting Sodium Chloride (0.9 % Sodium Chloride 10 Ml Syringe) 10 ml IV Q8 [facility] Last Admin: 12/09/22 05:51 Dose: 10 ml Vancomycin HCl (Vancomycin Per Pharmacy) 1 order IV UD [facility]; Protocol A/P Narrative A/P Narrative: A: *Cellulitis of left inguinal region and inner thigh: -CT no abscess but cellulitis left pelvic/groin/inguinal canal -BC neg thus far *Sepsis: 2/2 above - leukocytosis present, fever improved P: -IV abx -stop ivf -Monitor and replace electrolytes as needed -mrsa screen -Venous ultrasound rule out DVT -ppx: Lovenox Time Spent With Patient Time: Total time spent is greater than 50% in coordination of care (as documented) at patient's floor/unit and/or counseling patient: Subsequent: Total time with patient: 35 - 49 minutes QUALITY VTE Deep Vein Thrombosis/Pulmonary Embolism Present on Admission: No
[2022-12-09] MEDS: ENOXAPARIN 40 MG/0.4 ML SYRINGE SQ SCH (08:54)
[2022-12-09 11:33] LABS: Lymphocytes % (Auto) 17.9 % (15.5-49.0)
--- NOTE | 2022-12-09 11:41 | Ultrasound Report ---
CLINICAL INFORMATION: Left leg pain COMPARISON: None. FINDINGS: The entire deep venous system including the common femoral, superficial femoral, popliteal and paired trifurcation calf veins are easily compressible and show normal venous blood flow on color and spectral Doppler. No evidence of thrombus IMPRESSION: Negative exam - no evidence of deep vein thrombosis. 3-4 moderately enlarged left inguinal lymph nodes with benign reniform morphology. They range up to 4.5 cm. There are likely benign reactive lymph nodes Interpreted and Authenticated by: Byron Javier 12/09/22
--- NOTE | 2022-12-09 11:55 | Discharge Summary ---
Discharge Provider Provider IMPORTANT FOLLOW-UP INFORMATION FOR PCP: Patient information: Note initiated : 12/09/22 at 11:53 am Service Date, if different from initiated Date: [] Patient: Mainor Owens 37 y/o M admitted on 12/06/22 for leg infection. Chief Complaint: [] Date of admission: 12/06/22 20:32 Discharge date: 12/10/22 Primary care physician: Byron Crouch DO Consults: 12/06/22 Consult to Physician [CONS] Stat Comment: Consulting Provider: Sotero Lopez Reason For Exam: Physician to Consult COURSE Hospital Course Hospital course: brit Owens is a 37 year old M with no significant PMH. He reports he was taking his snowmachine off his truck and felt pain in his groin and later that evening had N/V/D. He was seen in the ER, felt to have epidydimitis and given Rx for levofloxacin and discharged. He returns with worsening redness and swelling of the left thigh. In the ER, WBC is 24, CT A/P notes left pelvic inflammatory changes "extending from the anterior border of the psoas muscle throught the inguinal canal in to the groin." He was started on vancomycin and Zosyn and admission was requested. Dec 07, WBC improved to 18 from 24. Blood cultures are NGTD. Will continue vancomycin and Zosy. Leg is less vibrantly red. Dec 08, WBC improved to 16. Cultures are still NGTD. Leg is less inflamed and Pt reports less pain. Continue current plan of care. 3/2 Patient with erythema and induration to left groin and inner thigh. Patient feels swelling and discomfort is improving. Leukocytosis present but improving. Patient does complain of headache but otherwise no new complaints. 3/3 Patient doing well. No overnight event or new complaints. White blood cell count essentially normal now. Will discharge on Augmentin. A: *Cellulitis of left inguinal region and inner thigh: -CT no abscess but cellulitis left pelvic/groin/inguinal canal -BC neg thus far *Sepsis: 2/2 above - leukocytosis present, fever improved P: -augmentin Discharge diagnosis: Left inguinal region and inner thigh cellulitis sepsis Time Spent with Patient Time attestation: Total time spent providing and/or coordinating discharge services: Time spent: Greater than 30 minutes EXAM Constitutional Vitals: Temp Pulse Resp BP Pulse Ox O2 Del Method 97.9 F 72 12 146/95 97 Room Air 12/09/22 08:00 12/09/22 08:00 12/09/22 08:00 12/09/22 08:00 12/09/22 08:00 12/09/22 08:00 Discharge Data Data Completed and Pending Labs on day of discharge: Labs from last 24 hours 12/09/22 12/09/22 12/09/22 05:10 05:09 05:09 WBC 12.5 H RBC 4.21 L Hgb 12.5 L Hct 36.8 L MCV 87.4 MCH 29.7 MCHC 34.0 RDW 12.5 Plt Count 256 MPV 9.9 Immature Gran % (Auto) 4.5 H Neut % (Auto) 63.8 Lymph % (Auto) 17.9 [place] % (Auto) 9.0 Eos % (Auto) 4.5 Baso % (Auto) 0.3 Lymph # (Auto) 2.25 [place] # (Auto) 1.13 H Eos # (Auto) 0.57 Baso # (Auto) 0.04 Immature Gran # 0.57 H Absolute Neutrophils 7.98 Sodium 139 Potassium 4.0 Chloride 102 Carbon Dioxide 27 Anion Gap 10.0 BUN 7 Creatinine 0.8 GFR Calculation 113 Glucose 91 Uric Acid 2.2 L Calcium 8.8 Phosphorus 4.1 Magnesium 1.9 Total Bilirubin 0.4 Direct Bilirubin < 0.2 GGT 53 AST 25 ALT 35 Alkaline Phosphatase 114 Lactate Dehydrogenase 197 Total Protein 6.3 Albumin 3.2 Globulin 3.1 Albumin/Globulin Ratio 1.0 Triglycerides 161 H Procalcitonin 0.55 H Preliminary micro results at discharge 12/06/22 18:09 Blood Culture - Preliminary Blood 12/06/22 18:07 Blood Culture - Preliminary Blood Discharge Plan Patient/Caregiver Discharge Instructions Activity: increase activity as tolerated Diet: Regular Diet Prescriptions: New amoxicillin-pot clavulanate 875-125 mg tablet 1 tab PO Q12H Qty: 14 0RF Discontinued levofloxacin 750 mg tablet 750 mg PO Q24H 14 Days Qty: 14 0RF Rx Instructions: Take until completely gone. Follow Up Plan Follow up with: Byron Crouch DO [Primary Care Provider] - Patient Disposition: Home, Self-Care Prognosis: Good Overall status at discharge: patient is progressing back to baseline Discharge Orders: Discharge Order (Routine); Ordered 12/10/22 Ordered By: Arash Stein [facility] VTE Deep Vein Thrombosis/Pulmonary Embolism Present on Admission: No
[2022-12-10] MEDS: VANCOMYCIN 1,500 MG in 0.9 % SODIUM CHLORIDE 500 ML IV SCH (05:11)
[2022-12-10] MEDS: 0.9 % SODIUM CHLORIDE 10 ML SYRINGE IV SCH (07:13)
[2022-12-10] MEDS: ACETAMINOPHEN 325 MG TABLET PO PRN (07:35)
[2022-12-10 07:49] LABS: Basophils # (Auto) 0.07 K/mcL (0.00-0.30); Basophils % (Auto) 0.6 % (0.0-2.0); Eosinophils # (Auto) 0.52 K/mcL (0.00-0.70); Eosinophils % (Auto) 4.5 % (0.0-7.0); Hematocrit 39.1 % (40.1-51.0); Hemoglobin 13.2 g/dL (13.7-17.5); Lymphocytes # (Auto) 2.47 K/mcL (1.50-4.80); Mean Cell Volume 88.5 fL (80.0-100.0); Mean Corpuscular HGB Conc 33.8 g/dL (31.0-36.0); Mean Platelet Volume 9.6 fL (8.8-12.5); Monocytes # (Auto) 0.98 K/mcL (0.10-0.90); Monocytes % (Auto) 8.6 % (1.0-12.0); Neutrophils % (Auto) 60.6 % (38.0-78.0); Platelet Count 285 K/mcL (140-440); RBC 4.42 M/mcL (4.63-6.08); Red Cell Distribution Width 12.4 % (11.5-14.5); WBC 11.5 K/mcL (4.5-11.0)
[2022-12-10] MEDS: PIPERACILLIN SODIUM/TAZOBACTAM 3.375 GM in DEXTROSE 5% IN WATER 50 ML IV SCH (07:56)
[2022-12-10] MEDS: ENOXAPARIN 40 MG/0.4 ML SYRINGE SQ SCH (08:46)
[2022-12-10 10:44] LABS: Lymphocytes % (Auto) 21.6 % (15.5-49.0)
== END 2022-12-10 10:20 | disposition home or self-care (01) | DRG 602 ==
LOC: ED 15:28 → MEDSUR 20:32
PROVIDERS: ADMIT Internal Medicine; ATTEND Internal Medicine